=== PATIENT | male | born 1965 | race Caucasian/White ===

== ENCOUNTER 2018-11-24 08:49 | Outpatient (REF) | payer BC, SELFPAY ==
[2018-11-24 12:17] LABS: Calculated LDL 154; Cholesterol 238 mg/dL (50-200); HDL Cholesterol 71 mg/dL (40-60); Triglyceride 68 mg/dL (30-150)
== END 2018-11-24 09:09 ==
LOC: NCHCN 08:49
PROVIDERS: PCP Family Medicine; Visit Provider Family Medicine
DX: Z00.00 Encounter for general adult medical examination without abnormal findings (principal); E78.5 Hyperlipidemia, unspecified
CPT/HCPCS: 80061; 83721

== ENCOUNTER 2019-06-18 08:50 | Outpatient (REF) | payer BC, SELFPAY ==
[2019-06-18 14:00] LABS: ALT 49 U/L (16-63); AST 27 U/L (15-37); Albumin 4.1 g/dL (3.4-5.0); Alkaline Phosphatase 84 U/L (46-116); Bilirubin, Direct 0.13 mg/dL (0.00-0.20); Bilirubin, Total 0.4 mg/dL (0.2-1.0); Total Protein 7.5 g/dL (6.4-8.2)
[2019-06-18 14:24] LABS: Calculated LDL 105 mg/dL; Cholesterol 175 mg/dL (<200); HDL Cholesterol 64 mg/dL (40-60); Triglyceride 33 mg/dL (<150)
== END 2019-06-18 09:10 ==
LOC: NCHCN 08:50
PROVIDERS: PCP Family Medicine; Visit Provider Family Medicine
DX: Z00.00 Encounter for general adult medical examination without abnormal findings (principal); E78.5 Hyperlipidemia, unspecified; E66.3 Overweight
CPT/HCPCS: 80061; 80076

== ENCOUNTER 2020-06-27 14:53 | Outpatient (REF) | payer BC, SELFPAY ==
[2020-06-27 14:10] LABS: ALT 62 U/L (16-63); AST 26 U/L (15-37); Albumin 4.5 g/dL (3.4-5.0); Alkaline Phosphatase 71 U/L (46-116); Anion Gap 9.4 mmol/L (3-11); BUN 15 mg/dL (7-18); Bilirubin, Total 0.4 mg/dL (0.2-1.0); CO2 26.6 mmol/L (21.0-32.0); CREATININE 0.92 mg/dL (0.70-1.30); Calcium 9.5 mg/dL (8.5-10.1); Calculated LDL 132 mg/dL (<100); Chloride 106 mmol/L (98-107); Cholesterol 222 mg/dL (<200); Glucose 98 mg/dL (74-106); HDL Cholesterol 72 mg/dL (40-60); Potassium 4.2 mmol/L (3.5-5.1); Sodium 142 mmol/L (136-145); Total Protein 7.7 g/dL (6.4-8.2); Triglyceride 93 mg/dL (<150)
[2020-06-27 22:09] LABS: PSA, Screening 0.3 ng/mL (0.0-3.5)
== END 2020-06-27 15:13 ==
LOC: NCHCN 14:53
PROVIDERS: PCP Family Medicine; Visit Provider Family Medicine
DX: Z00.00 Encounter for general adult medical examination without abnormal findings (principal); E78.5 Hyperlipidemia, unspecified; Z12.5 Encounter for screening for malignant neoplasm of prostate
CPT/HCPCS: 80053; 80061; 82306; 84153

== ENCOUNTER 2022-09-07 13:54 | Outpatient (REF) | payer BC, SELFPAY ==
[2022-09-07 21:48] LABS: Hemoglobin A1C 5.6 % (<5.7)
[2022-09-07 22:07] LABS: ALT 57 U/L (16-63); AST 28 U/L (15-37); Albumin 4.9 g/dL (3.4-5.0); Alkaline Phosphatase 79 U/L (46-116); BUN 18 mg/dL (7-18); Bilirubin, Total 0.7 mg/dL (0.2-1.0); Calcium 9.8 mg/dL (8.5-10.1); Calculated LDL 112 mg/dL (<100); Chloride 103 mmol/L (98-107); Cholesterol 200 mg/dL (<200); Estimated GFR 87.24 (mL/min/1.73m2); Glucose 89 mg/dL (74-106); HDL Cholesterol 78 mg/dL (40-60); Potassium 4.3 mmol/L (3.5-5.1); Sodium 142 mmol/L (136-145); Total Protein 7.8 g/dL (6.4-8.2); Triglyceride 53 mg/dL (<150)
[2022-09-07 22:15] LABS: Vitamin D 25 Total 32.6 ng/mL (30-100)
[2022-09-10 09:35] LABS: PSA, Screening 0.3 ng/mL (<=3.5)
== END 2022-09-07 13:55 | disposition home or self-care (01) ==
LOC: NCHCN 13:54
PROVIDERS: PCP Family Medicine; Visit Provider Family Medicine
DX: Z00.00 Encounter for general adult medical examination without abnormal findings (principal); E78.5 Hyperlipidemia, unspecified; Z12.5 Encounter for screening for malignant neoplasm of prostate; Z13.1 Encounter for screening for diabetes mellitus; Z13.21 Encounter for screening for nutritional disorder
CPT/HCPCS: 80053; 80061; 82306; 84153; 83036